=== PATIENT | female | born 1980 | race Two or more races ===

== ENCOUNTER 2017-04-17 21:55 | Emergency (ER) | payer OTHER ==
[2017-04-17 22:03] VITALS: O2SAT 96
--- NOTE | 2017-04-17 22:07 | EDPHY ---
H & P Stated Complaint: cough/cold/fever/vomiting; despite medications Source: Patient Exam Limitations: No limitations (Chinese), Language barrier - Personal History LMP (Females 10-55): Now Current Tetanus/Diphtheria Vaccine: Yes - Medical/Surgical History Hx Asthma: No Hx Chronic Respiratory Disease: No Hx Diabetes: No Hx Cardiac Disease: No Hx Renal Disease: No Hx Cirrhosis: No Hx Alcoholism: No Hx HIV/AIDS: No Hx Splenectomy or Spleen Trauma: No Other PMH: PMHx: denies. PSHx: appy - Social History Smoking Status: Never smoked Time Seen by Provider: 04/17/17 22:07 HPI/ROS: HPI: This is a 37-year-old female who presents with Chief Complaint: cough/cold/fever/vomiting; despite medications Location: Body Quality: Aches Duration: 2 days Signs and Symptoms: + fever, + chills, + fatigue, + dry cough, no headache, no neck stiffness Timing:sudden, constant Severity: moderate to severe Context: Patient presents multiple complaints including sudden onset of fatigue , fever, nonproductive cough, chills, body aches for the last 2 days despite taking xrjo-frx-[id number] medications. Did not receive her influenza vaccine. She started her menses today. Nonsmoker. No history of lung disease. Modifying Factors: Guem-okm-exqlahg medications Comment: ROS: see HPI Constitutional: No fever, no chills, no weight loss Eyes: No blurred vision Respiratory: No shortness of breath, no cough Cardiovascular: No chest pain Gastrointestinal: No nausea, no vomiting, no diarrhea Genitourinary: No dysuria Extremities: No myalgias Neurologic: No weakness, no numbness Skin: No rashes Hematologic: No bruising, no bleeding MEDICAL/SURGICAL/SOCIAL HISTORY: Medical history: Generally healthy. Does not take any regular medications. Surgical history: Appendectomy Social history: Employed CONSTITUTIONAL: Ill-appearing but nontoxic adult female, polite and cooperative, awake and alert, no obvious distress HEENT: Atraumatic and normocephalic, PERRL, EOMI. Tympanic membranes clear. Oropharynx clear, no exudate and moist pink mucosa. Airway patent. No lymphadenopathy. No meningismus. Cardiovascular: Normal S1/S2, regular rate, regular rhythm, without murmur rub or gallop. PULMONARY/CHEST: Symmetrical and nontender. Clear to auscultation bilaterally. Good air movement. No accessory muscle usage. ABDOMEN: Soft, nondistended, nontender, no rebound, no guarding, no peritoneal signs, no masses or organomegaly. No CVAT. EXTREMITIES: 2/2 pulses, strength 5/5, no deformities, no clubbing, no cyanosis or edema. NEUROLOGICAL: no focal neuro deficits. GCS 15. SKIN: Warm and dry, no erythema. no rash. Good capillary refill. ([place]) Constitutional: Initial Vital Signs Temperature (C) 38.1 C 04/17/17 21:59 Heart Rate 95 04/17/17 21:59 Respiratory Rate 16 04/17/17 21:59 Blood Pressure 119/76 04/17/17 21:59 O2 Sat (%) 96 04/17/17 21:59 O2 Delivery Mode Room Air Allergies/Adverse Reactions: No Known Allergies Allergy (Unverified 09/13/09 10:00) Home Medications: Medication Instructions Recorded NO HOME MEDS 09/13/09 Oseltamivir Phosphate [Tamiflu 75 75 mg PO BID #10 cap 04/18/17 mg (*)] Medical Decision Making - Diagnostics Imaging Results: Imaging Impressions Chest X-Ray 04/17/17 22:12 Impression: Streaky right upper lobe opacities, possibly representing atelectasis or scarring, without definite evidence of pneumonia. ED Course/Re-evaluation: Influenza, chest x-ray, IV fluids, IV medications ordered Vital signs reviewed and stable upon arrival to the ER. No signs of of hypoxia/wheezing Chest x-ray shows no clear evidence of opacity; there is some streaking bilaterally and upper lobes that may be atelectasis Influenza a positive; symptoms 48 hours; Tamiflu 75 mg given Advised supportive care ([place]) Differential Diagnosis: Differential diagnosis includes but is not limited to influenza, viral syndrome , infectious mononucleosis, upper respiratory infection. ([place]) Other Provider: PHYSICIAN DOCUMENTATION: The patient was evaluated and managed by the Physician [employer] Sales Representative. My co- signature indicates that I have reviewed this chart and I agree with the findings and plan of care as documented. I am the secondary supervising physician. (Miriam Cavazos) - Data Points Laboratory Results: 04/17/17 22:50 Nasal Influenza A PCR FLU A DETECTED H (NEGATIVE) Nasal Influenza B PCR NEGATIVE FOR FLU B (NEGATIVE) Medications Given: Discontinued Medications Acetaminophen (Tylenol) 1,000 mg PO EDNOW ONE Stop: 04/17/17 22:43 Last Admin: 04/17/17 22:43 Dose: 1,000 mg Benzonatate (Tessalon Pearles) 200 mg PO EDNOW ONE Stop: 04/17/17 22:14 Last Admin: 04/17/17 22:43 Dose: 200 mg Sodium Chloride (Ns) 1,000 mls @ 0 mls/hr IV EDNOW ONE; Wide Open PRN Reason: Protocol Stop: 04/17/17 22:13 Last Admin: 04/17/17 22:44 Dose: 1,000 mls Ketorolac Tromethamine (Toradol) 30 mg IVP EDNOW ONE Stop: 04/17/17 22:13 Last Admin: 04/18/17 00:33 Dose: 30 mg Oseltamivir Phosphate (Tamiflu) 75 mg PO EDNOW ONE Stop: 04/18/17 00:13 Last Admin: 04/18/17 00:33 Dose: 75 mg Departure - Departure Disposition: Home, Routine, Self-Care Clinical Impression: Influenza A Condition: Good Instructions: Influenza (ED) Additional Instructions: Please rest as much as possible over the next few days. Drink plenty of fluids at a minimum #8, 8 oz of liquids per day. Take Tylenol and ibuprofen as needed for fever, pain, headache. Once you start Tamiflu please take all 5 days until complete. Referrals: [facility],. [Clinic] - 3-4 days, if not improved Prescriptions: Oseltamivir Phosphate [Tamiflu 75 mg (*)] 75 mg PO BID #10 cap
[2017-04-17] MEDS ORDERED: NS 1,000 ML IV ONE (22:12)
[2017-04-17] MEDS ORDERED: KETOROLAC 30 MG/1 ML SDV IVP ONE (22:12)
[2017-04-17] MEDS ORDERED: BENZONATATE 100 MG CAP PO ONE (22:13)
[2017-04-17] MEDS ORDERED: ACETAMINOPHEN 500 MG TAB ONE (22:41)
[2017-04-17] MEDS ORDERED: ACETAMINOPHEN 500 MG TAB PO ONE (22:42)
[2017-04-18] MEDS ORDERED: OSELTAMIVIR PHOSPHATE 75 MG CAP PO ONE (00:12)
[2017-04-18] MEDS ORDERED: KETOROLAC 30 MG/1 ML SDV ONE (00:26)
[2017-04-18 00:44] VITALS: BP 106/70; PULSE 72; RESP 18; TEMP 98.2
== END 2017-04-18 00:55 | disposition home or self-care (01) ==
PROC: 3E0337Z Introduction of Electrolytic and Water Balance Substance into Peripheral Vein, Percutaneous Approach (ICD-10-PCS; principal; 2017-04-17)
DX: J10.1 Influenza due to other identified influenza virus with other respiratory manifestations (principal); E86.9 Volume depletion, unspecified
CPT/HCPCS: 96374; J1885